=== PATIENT | female | born 1940 | race Caucasian/White ===

== ENCOUNTER 2016-11-17 18:35 | Inpatient (IN) | payer OTHER ==
[~2016-11-17] VITALS: Ht 162.6 cm; Wt 92.1 kg
[2016-11-17 20:03] LABS: EOSINOPHIL (%) 2.4 % (0-5); EOSINOPHIL COUNT 0.3 K/uL (0-0.3); HEMATOCRIT 41.4 % (36.0-46.0); IMMATURE GRANULOCYTE (%) 0.5 % (0.0-0.7); IMMATURE GRANULOCYTE COUNT 0.1 K/uL; INSTRUMENT ABS NEUTROPHIL CT 7.5 K/uL; MCH 31.4 PG (29.0-34.0); MCHC 34.1 G/DL (30.0-36.0); MCV 92.2 FL (83-99); MEAN PLAT.VOLUME 9.4 uM^3 (9.5-12.4); MONOCYTE (%) 7.5 % (3-12); MONOCYTE COUNT 0.9 K/uL (0-0.8); NEUTROPHIL (%) 63.9 % (45-76); NEUTROPHIL COUNT 7.5 K/uL (1.8-6.4); PLATELET COUNT 228 K/uL (156-360); RBC DIS.WIDTH-CV 13.1 % (11.8-14.6); RBC DIS.WIDTH-SD 43.8 % (39-53); RED BLOOD COUNT 4.49 M/uL (3.80-5.20); WHITE BLOOD COUNT 11.8 K/uL (4.1-10.2)
[2016-11-17 20:11] LABS: CHLORIDE 107 mEq/L (99-109); POTASSIUM 3.8 mEq/L (3.7-5.4); SODIUM 138 mEq/L (136-147)
[2016-11-17 20:12] LABS: GLUCOSE 91 mg/dL (70-99)
[2016-11-17 20:14] LABS: ANION GAP 12 MEQ/L (2-14)
[2016-11-17 20:16] LABS: GFR ESTIMATE (CALCULATED) > 59 mL/min/
[2016-11-17 20:17] LABS: UREA NITROGEN (BUN) 18 mg/dL (9-23)
[2016-11-17] MEDS ORDERED: SYMBICORT60 INHALAT IH (21:07)
[2016-11-17] MEDS ORDERED: FISH OIL 1,0001 EAC7 PO (21:08)
[2016-11-17] MEDS ORDERED: ATIVAN1 MG PO (21:08)
[2016-11-17] MEDS ORDERED: VITAMIN C1000 MG PO (21:08)
[2016-11-17] MEDS ORDERED: LEXAPRO5 MG PO (21:08)
[2016-11-17] MEDS ORDERED: ALEVE220 MG PO (21:09)
[2016-11-17] MEDS ORDERED: TYLENOL EXTRA500 MG PO (21:09)
[2016-11-17] MEDS ORDERED: DAILY VITE1 EAC1 PO (21:09)
[2016-11-17] MEDS ORDERED: MUCINEX1200 MG PO (21:10)
[2016-11-17 23:44] VITALS: BP 136/64
[2016-11-18 07:06] LABS: Estimated Average Glucose 131 mg/dL (70-123); HEMOGLOBIN A1c (GLYCOHEMOGLOB) 6.2 % HGB (Below 5.7)
[2016-11-18 07:30] VITALS: BP 142/71
[2016-11-18 07:43] LABS: POINT-OF-CARE METER ID UU13113700
[2016-11-18 10:47] LABS: MCHC 33.8 G/DL (30.0-36.0); MCV 94.8 FL (83-99); MEAN PLAT.VOLUME 9.5 uM^3 (9.5-12.4); PLATELET COUNT 225 K/uL (156-360); RBC DIS.WIDTH-CV 13.3 % (11.8-14.6); RBC DIS.WIDTH-SD 46.1 % (39-53); RED BLOOD COUNT 4.22 M/uL (3.80-5.20); WHITE BLOOD COUNT 11.2 K/uL (4.1-10.2)
[2016-11-18 11:15] LABS: ALKALINE PHOSPHATASE 72 IU/L (3-129); ANION GAP 12 MEQ/L (2-14); CHLORIDE 105 MEQ/L (99-109); GFR ESTIMATE (CALCULATED) > 59 mL/min/; POTASSIUM 4.1 MEQ/L (3.7-5.4); SAMPLE HEMOLYSIS CHECK 0; SAMPLE ICTERIC CHECK 0; SAMPLE LIPEMIA CHECK 0; SODIUM 136 MEQ/L (136-147); TOTAL BILIRUBIN 0.4 MG/DL (0.0-1.0); UREA NITROGEN (BUN) 14 mg/dL (9-23)
[2016-11-18 11:18] LABS: GLUCOSE 286 mg/dL (70-99)
[2016-11-18 11:53] VITALS: BP 138/68
[2016-11-18 13:04] LABS: POINT-OF-CARE METER ID UU13113700
[2016-11-18 15:10] VITALS: BP 136/63
[2016-11-18 16:48] LABS: POINT-OF-CARE METER ID UU14162508
[2016-11-18 20:00] VITALS: BP 137/59
[2016-11-18 22:00] LABS: POINT-OF-CARE METER ID UU14162508
[2016-11-18 23:16] VITALS: BP 117/56
[2016-11-19 04:08] VITALS: BP 120/60
[2016-11-19 06:33] LABS: POINT-OF-CARE METER ID UU14162508
[2016-11-19 07:10] VITALS: BP 164/72
[2016-11-19 08:04] LABS: HEMATOCRIT 40.3 % (36.0-46.0); MCH 32.2 PG (29.0-34.0); MCHC 33.7 G/DL (30.0-36.0); MCV 95.3 FL (83-99); MEAN PLAT.VOLUME 9.7 uM^3 (9.5-12.4); PLATELET COUNT 255 K/uL (156-360); RBC DIS.WIDTH-CV 13.4 % (11.8-14.6); RBC DIS.WIDTH-SD 46.6 % (39-53); RED BLOOD COUNT 4.23 M/uL (3.80-5.20); WHITE BLOOD COUNT 22.4 K/uL (4.1-10.2)
[2016-11-19 08:30] LABS: ANION GAP 9 MEQ/L (2-14); CHLORIDE 106 MEQ/L (99-109); GFR ESTIMATE (CALCULATED) > 59 mL/min/; GLUCOSE 184 mg/dL (70-99); POTASSIUM 4.4 MEQ/L (3.7-5.4); SAMPLE HEMOLYSIS CHECK 0; SAMPLE ICTERIC CHECK 0; SAMPLE LIPEMIA CHECK 0; SODIUM 139 MEQ/L (136-147); UREA NITROGEN (BUN) 17 mg/dL (9-23)
[2016-11-19 11:30] VITALS: BP 128/71
[2016-11-19 11:40] LABS: POINT-OF-CARE METER ID UU14208750
[2016-11-19 15:40] VITALS: BP 135/61
[2016-11-19 16:40] LABS: POINT-OF-CARE METER ID UU14208750
[2016-11-19 19:23] VITALS: BP 137/60
[2016-11-19 21:37] LABS: POINT-OF-CARE METER ID UU14208750
[2016-11-20] VITALS: BP 138/68
[2016-11-20 04:13] VITALS: BP 132/68
[2016-11-20 06:34] LABS: POINT-OF-CARE METER ID UU14208750
[2016-11-20 07:20] VITALS: BP 160/70
[2016-11-20] MEDS ORDERED: PREDNISONE10 MG PO (08:05)
[2016-11-20] MEDS ORDERED: SPIRIVA RESPIMAT4 GM IH (08:05)
[2016-11-20] MEDS ORDERED: AMLODIPINE BESYL5 MG PO (08:35)
== END 2016-11-20 12:16 | disposition home or self-care (01) | DRG 190 ==
LOC: EME 18:35 → EDOF 22:54 → 5WEST 22:54 → EDOF 22:54 → ENRESERV 22:55 → 5WEST 23:27 → 2EAST 11-18 12:20 → ENRESERV 11-18 12:44 → 2EAST 11-18 15:04
PROVIDERS: Emergency Medicine; Hospitalist
DX: J44.1 Chronic obstructive pulmonary disease with (acute) exacerbation (principal); J96.01 Acute respiratory failure with hypoxia; R91.1 Solitary pulmonary nodule; E78.5 Hyperlipidemia, unspecified; E66.9 Obesity, unspecified; Z68.34 Body mass index [BMI] 34.0-34.9, adult; Z87.891 Personal history of nicotine dependence; Z79.51 Long term (current) use of inhaled steroids
CPT/HCPCS: 71020; 71275; 80048; 80053; 82948; 83036; 85025; 85027; 94640; 94640 76; 94799; 99202; 99281; 99285; G0378; J0456; J1644; J1815; J2920; J2930; J3475; J7030

== ENCOUNTER 2016-12-23 11:33 | Emergency (ER) | payer OTHER ==
[~2016-12-23] VITALS: Ht 162.6 cm; Wt 91.2 kg
[~2016-12-23 11:33] MED LIST: ALEVE220 MG PO; AMLODIPINE BESYL5 MG PO; ATIVAN1 MG PO; DAILY VITE1 EAC1 PO; FISH OIL 1,0001 EAC7 PO; LEXAPRO5 MG PO; MUCINEX1200 MG PO; PREDNISONE10 MG PO; SPIRIVA RESPIMAT4 GM IH; SYMBICORT60 INHALAT IH; TYLENOL EXTRA500 MG PO; VITAMIN C1000 MG PO
[2016-12-23 12:14] LABS: EOSINOPHIL (%) 0 % (0-5); HEMATOCRIT 41.5 % (36.0-46.0); IMMATURE GRANULOCYTE (%) 1.6 % (0.0-0.7); IMMATURE GRANULOCYTE COUNT 0.2 K/uL; INSTRUMENT ABS NEUTROPHIL CT 10.1 K/uL; LYMPHOCYTE COUNT 1.7 K/uL (1.0-2.8); MCH 31.7 PG (29.0-34.0); MCHC 33.5 G/DL (30.0-36.0); MCV 94.5 FL (83-99); MEAN PLAT.VOLUME 9.2 uM^3 (9.5-12.4); MONOCYTE (%) 5.2 % (3-12); MONOCYTE COUNT 0.7 K/uL (0-0.8); NEUTROPHIL COUNT 10.1 K/uL (1.8-6.4); PLATELET COUNT 218 K/uL (156-360); RBC DIS.WIDTH-CV 13.4 % (11.8-14.6); RBC DIS.WIDTH-SD 46.3 % (39-53); RED BLOOD COUNT 4.39 M/uL (3.80-5.20); WHITE BLOOD COUNT 12.7 K/uL (4.1-10.2)
[2016-12-23 12:27] LABS: CHLORIDE 105 mEq/L (99-109); POTASSIUM 3.9 mEq/L (3.7-5.4); SODIUM 140 mEq/L (136-147)
[2016-12-23 12:28] LABS: MAGNESIUM 2.1 mg/dL (1.3-2.7)
[2016-12-23 12:30] LABS: GLUCOSE 205 mg/dL (70-99)
[2016-12-23 12:31] LABS: ANION GAP 12 MEQ/L (2-14)
[2016-12-23 12:32] LABS: TOTAL BILIRUBIN 0.4 mg/dL (0.0-1.0)
[2016-12-23 12:33] LABS: ALKALINE PHOSPHATASE 82 IU/L (3-129); GFR ESTIMATE (CALCULATED) > 59 mL/min/
[2016-12-23 12:34] LABS: UREA NITROGEN (BUN) 19 mg/dL (9-23)
[2016-12-23 12:36] LABS: CREATINE KINASE 55 IU/L (1-294); TOTAL CK 55 IU/L (1-294)
[2016-12-23 12:37] LABS: TROP-I INTERPRETATION NEGATIVE; TROPONIN-I < 0.01 ng/mL (0.0-0.30)
[2016-12-23 12:42] LABS: CK-MB 1.7 ng/mL (0.0-4.9)
[2016-12-23 15:16] VITALS: BP 126/73
== END 2016-12-23 15:17 | disposition home or self-care (01) ==
LOC: EME 11:33
PROVIDERS: Emergency Medicine
DX: J44.1 Chronic obstructive pulmonary disease with (acute) exacerbation (principal); Z99.81 Dependence on supplemental oxygen; Z87.891 Personal history of nicotine dependence; E78.5 Hyperlipidemia, unspecified; Z88.0 Allergy status to penicillin; Z88.2 Allergy status to sulfonamides
CPT/HCPCS: 71020; 80053; 82550; 82553; 83735; 83880; 84484; 85025; 93005; 94640; 99281; 99284

== ENCOUNTER 2016-12-29 22:27 | Emergency (ER) | payer OTHER ==
[~2016-12-29] VITALS: Ht 165.1 cm; Wt 92.2 kg
[2016-12-29 22:51] LABS: HEMATOCRIT 39.5 % (36.0-46.0); MCH 31.8 PG (29.0-34.0); MCHC 34.2 G/DL (30.0-36.0); MCV 92.9 FL (83-99); MEAN PLAT.VOLUME 9.3 uM^3 (9.5-12.4); PLATELET COUNT 225 K/uL (156-360); RBC DIS.WIDTH-CV 13.6 % (11.8-14.6); RBC DIS.WIDTH-SD 46.3 % (39-53); RED BLOOD COUNT 4.25 M/uL (3.80-5.20); WHITE BLOOD COUNT 14.8 K/uL (4.1-10.2)
[2016-12-29 23:03] LABS: CHLORIDE 108 mEq/L (99-109); POTASSIUM 3.5 mEq/L (3.7-5.4); SODIUM 139 mEq/L (136-147)
[2016-12-29 23:04] LABS: GLUCOSE 140 mg/dL (70-99)
[2016-12-29 23:06] LABS: ANION GAP 11 MEQ/L (2-14)
[2016-12-29 23:08] LABS: GFR ESTIMATE (CALCULATED) 57 mL/min/
[2016-12-29 23:09] LABS: UREA NITROGEN (BUN) 18 mg/dL (9-23)
[2016-12-30] MEDS ORDERED: TYLENOL WITH C1 EACH PO (02:05)
[2016-12-30] MEDS ORDERED: PREDNISONE20 MG PO (02:05)
[2016-12-30 02:16] VITALS: BP 118/72
== END 2016-12-30 02:17 | disposition home or self-care (01) ==
LOC: EME → EDBD 22:27 → EME 22:27
DX: J44.1 Chronic obstructive pulmonary disease with (acute) exacerbation (principal); R09.81 Nasal congestion; R19.7 Diarrhea, unspecified; Z87.891 Personal history of nicotine dependence; Z99.81 Dependence on supplemental oxygen
CPT/HCPCS: 71020; 80048; 85027; 93005; 94640; 99281; 99285; J1100; J3475; J7644